=== PATIENT | female | born 1950 | race Caucasian/White ===

== ENCOUNTER 2023-10-29 08:56 | Emergency (ER) | payer MEDICARE, OTHER ==
[2023-10-29 10:10] LABS: BASOPHILS ABSOLUTE AUTO 0.07 K/uL (0.00-0.10); BASOPHILS PERCENT AUTO 0.6 % (0.1-1.3); EOSINOPHILS ABSOLUTE AUTO 0.15 K/uL (0.00-0.40); EOSINOPHILS PERCENT AUTO 1.4 % (0.0-5.4); HEMATOCRIT 35.2 % (34.3-46.0); HEMOGLOBIN 11.4 g/dL (11.2-15.5); IMMATURE GRAN ABSOLUTE AUTO 0.05 K/uL (0.00-0.23); IMMATURE GRAN PERCENT AUTO 0.5 % (0.0-0.7); LYMPHOCYTES ABSOLUTE AUTO 4.34 K/uL (0.8-3.3); LYMPHOCYTES PERCENT AUTO 39.9 % (11.4-47.7); MEAN CORPUSCULAR HEMOGLOBIN 20.3 pg (31.6-35.5); MEAN CORPUSCULAR HGB CONC 32.4 g/dL (31.6-35.5); MEAN CORPUSCULAR VOLUME 62.6 fL (81.4-99.0); MONOCYTES ABSOLUTE AUTO 1.02 K/uL (0.20-0.90); MONOCYTES PERCENT AUTO 9.4 % (3.3-12.6); NEUTROPHILS ABSOLUTE AUTO 5.24 K/uL (1.0-7.6); NEUTROPHILS PERCENT AUTO 48.2 % (40.0-78.1); PLATELET COUNT,PLT 257 K/uL (130-375); RED BLOOD CELL COUNT 5.62 M/uL (3.77-5.24); WHITE BLOOD CELL COUNT,WBC 10.9 K/uL (3.2-11.0)
[2023-10-29 10:31] LABS: INR 1.1; PROTHROMBIN TIME 10.9 sec (9.2-10.6); PTT,PARTIAL THROMBOPLSTIN TIME 23.2 sec (21.8-27.3)
[2023-10-29] MEDS: Sodium Chloride 0.9% 100 ML IV ONE (10:32)
[2023-10-29] MEDS: Sodium Chloride 0.9% 10 ML Syringe FLUSH PRN (10:32)
[2023-10-29] MEDS: Iopamidol 755 Mg/ML 100 ML Bottle IV SCH (10:33)
[2023-10-29 10:34] LABS: CREATININE 0.9 mg/dL (0.6-1.0); EST CRCL DRUG DOSING (CG) 41.18 mL/min; MAGNESIUM 2.1 mg/dL (1.8-2.4); POTASSIUM,K 3.3 mmol/L (3.6-5.2); TROPONIN I HIGH SENSITIVITY 9.8 pg/mL (<=60.3)
[2023-10-29 10:35] LABS: ANION GAP 10.3 mmol/L (5.0-14.0)
== END 2023-10-29 12:00 | disposition home or self-care (01) ==
LOC: JP.ED 08:56
DX: J98.11 Atelectasis (principal); I10 Essential (primary) hypertension; J45.909 Unspecified asthma, uncomplicated; E03.9 Hypothyroidism, unspecified; Z88.0 Allergy status to penicillin; Z79.899 Other long term (current) drug therapy
CPT/HCPCS: 36415; 71275; 80048; 83735; 84484; 85025; 85610; 85730; 93005; 99285; J3490; Q9967